=== PATIENT | male | born 1945 | race Caucasian/White ===

== ENCOUNTER 2017-07-26 15:14 | Emergency (ER) | payer OTHER ==
[2017-07-26] MEDS: HYDROCODONE/APAP (10/325) TAB PO (16:04)
[2017-07-26] MEDS: CEFAZOLIN 1 GM INJ IM (18:26)
[2017-07-26] MEDS: DIPHTH/TET/ACEL PERTUSS (ADULT) 0.5 ML VIAL IM* (18:42)
== END 2017-07-26 19:14 | disposition home or self-care (01) ==
LOC: FTE 15:14
DX: S61.212A Laceration without foreign body of right middle finger without damage to nail, initial encounter (principal); S62.634A Displaced fracture of distal phalanx of right ring finger, initial encounter for closed fracture; S61.214A Laceration without foreign body of right ring finger without damage to nail, initial encounter; I10 Essential (primary) hypertension; W27.0XXA Contact with workbench tool, initial encounter; Y92.9 Unspecified place or not applicable
CPT/HCPCS: 12001; 73140; 90471; 90715; 96372; 99284-25